=== PATIENT | female | born 1990 | race Two or more races ===

== ENCOUNTER 2022-06-14 12:22 | Emergency (ER) | payer OTHER ==
[~2022-06-14] VITALS: Ht 165.1 cm; Wt 59.0 kg
[~2022-06-14 12:22] MED LIST: LEVSIN/SL0.125 MG PO; PAMELOR10 M1; PHENERGAN25 MG; PHENERGAN25 MG PO; PROTONIX40 MG PO; ZANTAC300 MG PO
[2022-06-14] MEDS ORDERED: LEXAPRO5 MG (12:50)
== END 2022-06-14 15:03 | disposition home or self-care (01) ==
LOC: ER 12:22
DX: S90.31XA Contusion of right foot, initial encounter (principal); X58.XXXA Exposure to other specified factors, initial encounter; Y93.9 Activity, unspecified; Y92.89 Other specified places as the place of occurrence of the external cause; Y99.9 Unspecified external cause status